=== PATIENT | female | born 1965 | race African-American/Black ===

== ENCOUNTER 2019-08-31 06:08 | Inpatient (IN) | payer OTHER ==
[2019-08-25 13:31] VITALS: BMI 37.1
[~2019-08-31 06:08] MED LIST: PHENAZOPYRIDINE HCL 100 MG TABLET (FP) PO ONE
[2019-08-31] MEDS ORDERED: PHENAZOPYRIDINE HCL 100 MG TABLET (FP) PO ONE (07:00)
--- NOTE | 2019-08-31 07:08 | HP ---
History & Physical Update - History History: No Change - Physical Physical: No Change - Assessment Assessment: No Change - Plan Plan: No Change (No change in HP)
[2019-08-31] MEDS ORDERED: DEXAMETHASONE SOD PHOSPHATE 4 MG/1 ML VIAL ONE ×2 (07:25→08:06)
[2019-08-31] MEDS ORDERED: fentaNYL CITRATE 250 MCG/5 ML VIAL ONE (07:25)
[2019-08-31] MEDS ORDERED: EPHEDRINE SULFATE/0.9% NACL/PF 50 MG/10 ML SYRINGE NR ONE (07:25)
[2019-08-31] MEDS ORDERED: MIDAZOLAM HCL 2 MG/2 ML SINGLE DOSE VIAL ONE ×2 (07:26)
[2019-08-31] MEDS ORDERED: PROPOFOL 20 ML ONE ×3 (07:26→09:04)
[2019-08-31] MEDS ORDERED: SUCCINYLCHOLINE CHLORIDE 200 MG/10 ML SYRINGE ONE (07:26)
[2019-08-31] MEDS ORDERED: ROCURONIUM BROMIDE 50 MG/5 ML SYRINGE ONE (07:27)
[2019-08-31] MEDS ORDERED: CEFAZOLIN 2 GM in DEXTROSE 5%-WATER - 100 ML IVPB ONE (07:37)
[2019-08-31] MEDS ORDERED: ceFAZolin SODIUM 1 GM VIAL IVPB ONE (08:00)
[2019-08-31] MEDS ORDERED: ceFAZolin SODIUM 1 GM VIAL ONE ×2 (08:05)
[2019-08-31] MEDS ORDERED: GLYCOPYRROLATE 0.2 MG/1 ML VIAL ONE ×2 (08:06)
[2019-08-31] MEDS ORDERED: LIDOCAINE HCL 2% JELLY (5 ML/TUBE) ONE (08:06)
[2019-08-31] MEDS ORDERED: NEOSTIGMINE METHYLSULFATE 0.5 MG/ML - 10 ML MDV ONE (08:06)
[2019-08-31] MEDS ORDERED: LIDOCAINE HCL/PF 2% SDV 5ML VIAL ONE (08:06)
--- NOTE | 2019-08-31 10:12 | OP ---
Operative Note - Note: Operative Date: 08/31/19 Pre-Operative Diagnosis: Leiomyomatous Uterus. Serosal myoma. Intramural myoma. Abdominal pain Operation: Total Abdominal Hysterectomy. Bilateral Salpingectomy Post-Operative Diagnosis: Same as Pre-op Surgeon: Bella Sihdu Awning Craftsperson: Shasha Restrepo Anesthesia: General Estimated Blood Loss (mls): 75 Operative Report Dictated: Yes
[2019-08-31] MEDS ORDERED: oxyCODONE HCL 5 MG TABLET PO PRN ×2 (10:51)
[2019-08-31] MEDS ORDERED: ONDANSETRON 4 MG/2 ML VIAL IVPUSH PRN (10:51)
[2019-08-31] MEDS ORDERED: DOCUSATE SODIUM 100 MG CAPSULE (FP) PO PRN (10:51)
[2019-08-31] MEDS ORDERED: BISACODYL 5 MG TABLET.DR (FP) PO PRN (10:51)
[2019-08-31] MEDS ORDERED: ACETAMINOPHEN 1000 MG/100 ML VIAL (NON FORMULARY) IVPB ONE (10:55)
--- NOTE | 2019-08-31 12:01 | SURG ---
Surgery Energy Scheduler Note Energy Scheduler: Shasha Restrepo PA-C Date of Service: 08/31/19 Diagnosis: Leiomyomatous Uterus. Serosal myoma. Intramural myoma. Abdominal pain Procedure: Total Abdominal Hysterectomy. Bilateral Salpingectomy I was present for the entirety of the operative procedure. For further detail, please refer to operative report. Visit type - Case Type Case Type: Scheduled - Emergency Emergency Visit: No - New patient This patient is new to me today: Yes Date on this admission: 08/31/19
[2019-08-31] MEDS: LACTATED RINGERS SOLUTION 1,000 ML IV SCH ×2 (12:15→21:10)
[2019-08-31] MEDS: CEFAZOLIN 1 GM/D5W 1 GM/50 ML BAG IVPB SCH (16:22)
[2019-08-31] MEDS ORDERED: ACETAMINOPHEN 325 MG TABLET (FP) PO SCH ×2 (17:00→18:00)
[2019-08-31] MEDS: ACETAMINOPHEN 1000 MG/100 ML VIAL (NON FORMULARY) IVPB PRN ×2 (17:24→22:24)
[2019-08-31] MEDS: SIMETHICONE 80 MG TAB.CHEW (FP) PO PRN (17:28)
[2019-08-31 18:02] LABS: HEMATOCRIT 37.1 % (32.4-45.2); HEMOGLOBIN 12.2 GM/dL (10.7-15.3); MCH 29.3 pg (25.7-33.7); MCHC 32.9 g/dl (32.0-36.0); MEAN CELL VOLUME 89.3 fl (80-96); MEAN PLT VOLUME 7.8 fl (7.5-11.1); PLATELET COUNT 217 K/MM3 (134-434); RBC 4.15 M/mm3 (3.60-5.2); RDW 14.7 % (11.6-15.6); WHITE BLOOD COUNT 9.9 K/mm3 (4.0-10.0)
[2019-08-31] MEDS: IBUPROFEN 800 MG/8 ML IJ IVPB PRN (18:15)
[2019-08-31 18:21] LABS: CREATININE 0.9 mg/dL (0.55-1.3); POTASSIUM 4.5 mmol/L (3.5-5.1)
[2019-09-01] MEDS: CEFAZOLIN 1 GM/D5W 1 GM/50 ML BAG IVPB SCH (00:09)
[2019-09-01] MEDS: LACTATED RINGERS SOLUTION 1,000 ML IV SCH ×2 (06:05→11:00)
--- NOTE | 2019-09-01 08:13 | PN ---
Progress Note (short form) - Note Progress Note: Anesthesia postop note 54 y/o F s/p GA for YUMIKO/BSO, TAP blocks for postop pain management. POD#1, vss, aaox3, some pain overnight. No anesthesia complications.
[2019-09-01 08:25] LABS: HEMATOCRIT 32.1 % (32.4-45.2); HEMOGLOBIN 10.7 GM/dL (10.7-15.3); MCH 29.5 pg (25.7-33.7); MCHC 33.4 g/dl (32.0-36.0); MEAN CELL VOLUME 88.5 fl (80-96); PLATELET COUNT 202 K/MM3 (134-434); RBC 3.63 M/mm3 (3.60-5.2); RDW 14.2 % (11.6-15.6); WHITE BLOOD COUNT 7.8 K/mm3 (4.0-10.0)
--- NOTE | 2019-09-01 08:34 | PN ---
Progress Note (short form) - Note Progress Note: 54yo F s/p abd hysterectomy POD 1. Pt seen and examined at bedside. Pt states abd pain is controlled. Pt denies fever, chills, n/v, sob, cp. Pt still has davies in place and has yet to ambulate. Last Vital Signs Temp Pulse Resp BP Pulse Ox 98.1 F 53 L 18 147/82 100 09/01/19 06:00 09/01/19 06:00 09/01/19 06:00 09/01/19 06:00 08/31/19 21:00 CBC, BMP 09/01/19 07:47 PE; Gen: A&O X3 Resp: breathing comfortably Abd; soft, nondistended, mild lower abd tenderness, incision dressing clean with no erythema or discharge. Ext: no edema Problem List - Problems (1) S/P hysterectomy Assessment/Plan: Plan -pt appears to be doing well, will DC davies and encourage OOB/ambulate -start clears and adv as tolerated. -pain control -DVT ppx -will plan for DC tomorrow if no issues Pt discussed with Dr. Sidhu who agrees with plan Code(s): Z90.710 - ACQUIRED ABSENCE OF BOTH CERVIX AND UTERUS
[2019-09-01 08:41] LABS: BLOOD UREA NITROGEN 16.1 mg/dL (7-18); CALCIUM 8.5 mg/dL (8.5-10.1); CREATININE 0.8 mg/dL (0.55-1.3); POTASSIUM 3.7 mmol/L (3.5-5.1)
[2019-09-01] MEDS: ENOXAPARIN NA (PORCINE) 40 MG/0.4 ML DISP.SYRIN SQ SCH (09:17)
[2019-09-01] MEDS ORDERED: FLU VACCINE QUAD 60 MCG/0.5 ML (MDV 19-20) IM ONE (10:00)
--- NOTE | 2019-09-01 10:59 | OP ---
DATE OF OPERATION: 08/31/2019 PREOPERATIVE DIAGNOSIS: Leiomyomatous uterus, submucosal myoma, intramural myoma, and abdominal pain. OPERATION: Total abdominal hysterectomy, bilateral salpingectomy. POSTOPERATIVE DIAGNOSIS: Leiomyomatous uterus, submucosal myoma, intramural myoma, and abdominal pain. SURGEON: Bella Sidhu MD BENDER HELPER: EDGARD Ngo ANESTHESIA: General. ESTIMATED BLOOD LOSS: 75 mL. DESCRIPTION OF PROCEDURE: Patient was taken to the operating room. Placed in supine position. Prepped and draped in usual sterile fashion. Pfannenstiel skin incision was made with a scalpel. Cautery was then used to go through layers of abdominal wall to the level of the fascia. Fascia was cut in the midline, and cautery was then used to open the fascia in smiling fashion. Kochers were then used to bluntly and sharply dissect the rectus muscle off the fascia. Muscle was split in the midline. Peritoneal cavity was then entered and carried upward and downward. Bladder retractor was placed. A large leiomyomatous uterus was then exteriorized, and multiple myomas were seen coming out of the uterus most subserosal myomas and pedunculated myomas. Attention was then drawn to the left side where the vesicouterine reflection was identified, clamped, and cut. The vessels in the broad was identified and clamped and cut. Uterine arteries were identified, clamped, and cut. Bladder was bluntly dissected out of the operative field. Cardinal ligaments were identified, clamped, and cut down to the level of the cervix. Same procedure was repeated on the other side. Tubes and ovaries were noted to be normal bilaterally. The uterine artery was identified and clamped and cut. Cardinal ligament was identified and clamped and cut down to the level of the cervix. Two Kochers were placed on the cervix as well as the vagina, and a scalpel was then used to make an incision into the vagina. Jorgensons were then used to cut the vagina away from the cervix. The cervix was submitted to Pathology. Vagina was closed using 0 Vicryl suture in a continuous fashion. Hemostasis was achieved. Interceed was placed over the cuff and tied on. Hemostasis was achieved. Abdominal packing was removed, and count was noted to be normal. Abdominal sweep done. Peritoneum closed using 0 Vicryl suture in 2 parts. Subcutaneous was then approximated using 1 Vicryl suture at the fascia, and muscle was closed. Skin was then closed using 3-0 Biosyn in subcuticular fashion. The wound was washed and dressed. Patient tolerated procedure well. Estimated blood loss 75 mL. Latha [id number] MTDD
[2019-09-01] MEDS: IBUPROFEN 800 MG/8 ML IJ IVPB PRN (12:17)
[2019-09-01] MEDS: SIMETHICONE 80 MG TAB.CHEW (FP) PO PRN (22:13)
[2019-09-01] MEDS: IBUPROFEN 600 MG TABLET (FP) PO PRN (22:13)
[2019-09-01] MEDS: ACETAMINOPHEN 325 MG TABLET (FP) PO PRN (22:14)
[2019-09-02] MEDS: SIMETHICONE 80 MG TAB.CHEW (FP) PO PRN ×2 (02:06→07:39)
[2019-09-02] MEDS: IBUPROFEN 600 MG TABLET (FP) PO PRN ×2 (02:07→07:39)
[2019-09-02] MEDS: ACETAMINOPHEN 325 MG TABLET (FP) PO PRN ×2 (02:07→07:39)
--- NOTE | 2019-09-02 08:33 | DS ---
Physical Examination Vital Signs: Vital Signs Temperature 98.7 F 09/01/19 22:00 Pulse Rate 61 09/02/19 06:00 Respiratory Rate 18 09/02/19 06:00 Blood Pressure 151/99 09/02/19 06:00 O2 Sat by Pulse Oximetry (%) 100 08/31/19 21:00 Constitutional: Yes: No Distress Eyes: Yes: Conjunctiva Clear HENT: Yes: Atraumatic Neck: Yes: Supple Cardiovascular: Yes: Regular Rate and Rhythm Respiratory: Yes: Regular Gastrointestinal: Yes: Normal Bowel Sounds ...Rectal Exam: Yes: WNL Musculoskeletal: Yes: WNL Extremities: Yes: WNL Wound/Incision: Yes: Well Approximated Neurological: Yes: Alert, Oriented ...Motor Strength: WNL Psychiatric: Yes: Alert, Oriented Labs: CBC, BMP 09/01/19 07:47 09/01/19 07:47 Discharge Summary Problems reviewed: Yes Reason For Visit: LEIOMYOMATOUS UTERUS Current Active Problems S/P hysterectomy (Acute) Procedures: Principal: Abdominal hysterectomy / Bilateral salpingectomy Hospital Course: Routine post op care Health Concerns: None Plan of Treatment: Ambulation Analgesia as needed F/U with MD in 2 weeks Goals: Resume regular activities in 3-4 weeks Condition: Good - Instructions Diet, Activity, Other Instructions: Dr. Bella Sidhu [employer] Laborer discharge instructions Physical activity Resume your normal everyday activity as tolerated no heavy lifting or exercise until seen by your surgeon. You may walk unlimited dipak of and climb stairs. You may resume driving the car when you feel safe and comfortable behind the wheel. No sexual activity as instructed by Dr. Sidhu. Wound care If you have a bandage, leave it on, and keep dry for 48-72 hours. After that time discard the outer bandage. If they are tapes on the skin under the out of bandage leave them in place. They will peel off in the next 7 to 10 days. Do Not Peel them off. You may shower the day after surgery. If there are tapes present on the skin, you may shower over them. Diet There are no dietary restrictions. Eat healthy, high-fiber foods. Drink 6 to 8 glasses of liquid each day. This will assist in keeping your bowels are regular. Pain management You may take Tylenol or acetaminophen or Ibuprofen (for example, Motrin, Advil etc.) from my pain prescription medication is ordered should be taken as prescribed for moderate to severe pain. Do not drive, drink alcohol or operate heavy machinery while taking narcotic pain medications. ISTOP: [phone] Call Dr. Sidhu for any of the following: Severe pain not relieved by medication Fever of 101 or higher Excessive bleeding or drainage on dressing Inability to urinate Call the office at [phone] for an appointment in seven days. Disposition: HOME - Home Medications Comprehensive Discharge Medication List: Ambulatory Orders NK [No Known Home Medication] 08/25/19
[2019-09-02] MEDS: ENOXAPARIN NA (PORCINE) 40 MG/0.4 ML DISP.SYRIN SQ SCH (09:44)
[2019-09-02 10:17] VITALS: BP 143/88; PULSE 54; TEMP 98.1
== END 2019-09-02 11:40 | disposition home or self-care (01) | DRG 743 ==
LOC: JSAMEDAYSX 06:08 → J3W 12:20
PROVIDERS: ADMIT Obstetrics & Gynecology; ATTEND Obstetrics & Gynecology
PROC: 0UT70ZZ Resection of Bilateral Fallopian Tubes, Open Approach (ICD-10-PCS; 2019-08-31)
PROC: 0UT90ZZ Resection of Uterus, Open Approach (ICD-10-PCS; principal; 2019-08-31 07:30)
DX: D25.1 Intramural leiomyoma of uterus (principal); D25.0 Submucous leiomyoma of uterus
CPT/HCPCS: 36415; 74018-TC-FY; 80048; 85027; 86900; 88302-TC; 88307-TC; 94010; 94760; G0008; J0131; Q2036